=== PATIENT | male | born 1955 | race Caucasian/White ===

== ENCOUNTER 2019-01-15 | Inpatient (IN) ==
[2019-01-15] MEDS ORDERED: METOCLOPRAMIDE 10 MG/2 ML VIAL IV ONE (00:13)
[2019-01-15] MEDS ORDERED: 0.9 % SODIUM CHLORIDE 2,000 ML IV ONE (00:13)
[2019-01-15] MEDS ORDERED: ACETAMINOPHEN 325 MG TABLET PO ONE (00:13)
--- NOTE | 2019-01-15 00:16 | Emergency Department Note ---
Headache HPI - General Chief Complaint: Headache Stated Complaint: headache after drinking tonight Time Seen by Provider: 01/15/19 00:06 Source: patient Mode of arrival: EMS Limitations: no limitations - History of Present Illness HPI Narrative: 63-year-old male was brought in intoxicated after drinking 1/5 of whiskey or more. Complaining of headache-it is not clear whether he had a headache before or after starting alcohol drinking , as his story changed. Not entirely cooperative for interview and exam but will answer simple questions. He called EMS. Denies fever shortness of breath. Notes chronic diarrhea - Related Data Home Medications Medication Instructions Recorded Confirmed pantoprazole 1 tab PO QDAY 04/26/16 07/26/17 ascorbic acid (vitamin C) 1 tab PO DAILY 05/25/17 07/26/17 Lisinopril [Zestril] 10 mg PO DAILY 01/15/19 01/15/19 Omeprazole [PriLOSEC] 20 mg PO DAILY 01/15/19 01/15/19 Previous Rx's Medication Instructions Recorded tamsulosin 0.4 mg capsule 0.4 mg PO QDAY #30 cap 06/21/17 oxyCODONE/APAP [Percocet 10-325Mg] 1 tab PO Q4HP PRN #60 tab 06/29/17 Allergies Allergy/AdvReac Type Severity Reaction Status Date / Time No Known Drug Intolerances Allergy Unknown Unknown Verified 09/19/18 11:52 Review of Systems Limitations: ROS unobtainable due to patients medical condition Headache PMH - Past Medical History Attestation: Yes: The following information was validated with the patient. [facility] Narrative: Family History (This Medical Record has been edited. Action required.) Mother Dementia Father Acute myocardial infarction Medical History (This Medical Record has been edited. Action required.) Suicidal ideation (Acute) Acute alcohol intoxication (Acute) Peptic ulcer disease (Chronic) Abdominal pain (Chronic) Chronic cholecystitis without calculus (Chronic) Nausea (Chronic) Abdominal swelling (Chronic) Abdominal pain (Chronic) External hemorrhoid, bleeding (Acute) Atypical chest pain (Acute) Pneumonia (Acute) Rheumatoid arthritis flare (Acute) Wrist arthritis (Acute) Acute peritonitis (Acute) Gastritis (Acute) Small bowel obstruction (Chronic) Gastroenteritis (Acute) Emesis, persistent (Acute) Diarrhea (Chronic) Chronic RLQ pain (Chronic) Tobacco dependence (Chronic) Alcohol abuse (Acute) Dehydration (Acute) Dehydration (Acute) Vomiting (Acute) Urinary frequency (Chronic) Transient cerebral ischemia (Chronic) Shortness of breath (Chronic) Rheumatoid arthritis (Chronic) Psoriatic arthritis (Chronic) Constipation (Chronic) H/O adenomatous polyp of colon (Chronic) Dysphasia (Chronic) Bleeding ulcer (Chronic) Weak urinary stream (Chronic) Hyperlipidemia (Chronic) Gastric ulcer (Chronic) Duodenal ulcer with hemorrhage (Chronic) Benign essential hypertension (Chronic) Tobacco abuse (Chronic) Stroke (Chronic) Seizures (Chronic) Muscle ache (Chronic) Hypertension, essential (Chronic) Gout (Chronic) Depressive disorder (Chronic) Arthritis (Chronic) Alcohol abuse (Chronic) Acid reflux (Chronic) Gastrointestinal bleeding, upper (Acute) Internal bleeding (Acute) History of chest x-ray (Chronic 09/28/15) Perforated chronic duodenal ulcer (Resolved) Past Surgical History (This Medical Record has been edited. Action required.) History of repair of rotator cuff (Chronic) History of knee replacement procedure of left knee (Chronic) History of colonoscopy (Chronic) History of esophagogastroduodenoscopy (EGD) (Acute 02/29/16) History of colonoscopy (Chronic 02/19/15) History of esophagogastroduodenoscopy (EGD) (Chronic 12/08/15) History of inguinal hernia repair (Chronic 09/30/15) Medical history: Reports: GERD, GI bleed, hyperlipidemia, arthritis, hypertension, seizures, other, CVA, TIA, COPD Psychiatric history: Reports: depression - Social History smoking status: Current every day smoker Alcohol use: Reports: Heavy, Recent Drug use: Reports: none Physical Exam No acute distress. Somnolent but easily arousable. Normocephalic atraumatic. I did try to palpate his forehead area which he said did reproduce some tenderness. Conjunctive of bilaterally injected but he is having some yellowish drainage from the left eye. No nasal discharge or congestion. Wearing nasal cannula oxygen which she says is chronic. Oropharynx is pink moist. Neck is supple without lymphadenopathy or thyromegaly. Heart is regular rate and rhythm no murmur appreciated. Lungs are clear to auscultation bilaterally without wheezes rales rhonchi or respiratory distress. Abdomen is soft nontender nondistended. No pedal edema. Will answer simple questions only-irritable and only partially cooperative Limitations: no limitations Course Vital Signs Temperature 97.8 F 01/15/19 00:02 Pulse Rate 75 01/15/19 00:02 Respiratory Rate 17 01/15/19 00:02 Blood Pressure 151/98 01/15/19 00:02 Pulse Oximetry (%) 95 01/15/19 00:02 Temperature 97.8 F 01/15/19 00:02 Pulse Rate 73 01/15/19 02:58 Respiratory Rate 17 01/15/19 00:02 Blood Pressure 151/98 01/15/19 00:02 Pulse Oximetry (%) 98 01/15/19 02:58 Headache - Lab Data Lab results reviewed: Yes I reviewed the patient's lab results. Result diagrams: 01/15/19 00:22 01/15/19 00:22 Lab Results 01/15/19 01/15/19 01/15/19 Range/Units 00:22 00:22 00:22 WBC 6.9 (4.5-11.0) K/mcL RBC 4.48 L (4.50-5.90) M/mcL Hgb 10.9 L (13.5-16.5) g/dL Hct 34.8 L (41.0-55.0) % MCV 77.6 L (80.0-100.0) fL MCH 24.4 L (26.0-34.0) pg MCHC 31.4 (31.0-36.0) g/dL RDW 21.0 H (11.5-14.5) % Plt Count 289 (140-440) K/mcL MPV 9.4 (7.4-10.4) fL Gran % 61.4 (38.0-78.0) % Lymph % (Auto) 25.1 (15.5-49.0) % [place] % (Auto) 10.1 (1.0-12.0) % Eos % (Auto) 2.7 (0.0-7.0) % Baso % (Auto) 0.7 (0.0-2.0) % Gran # 4.2 (1.8-8.0) K/mcL Lymph # (Auto) 1.7 (1.5-4.8) K/mcL [place] # (Auto) 0.7 (0.1-0.9) K/mcL Eos # (Auto) 0.2 (0.0-0.7) K/mcL Baso # (Auto) 0 (0.0-0.3) K/mcL Sodium 144 (133-145) mmol/L Potassium 2.6 L* (3.3-5.1) mmol/L Chloride 103 (96-108) mmol/L Carbon Dioxide 24 (22-30) mmol/L Anion Gap 17.0 H (8-16) BUN 7 L (8-23) mg/dl Creatinine 0.6 L (0.7-1.2) mg/dl GFR Calculation 108 Glucose 72 (70-105) mg/dL Calcium 8.0 L (8.6-10.4) mg/dl Magnesium (1.6-2.5) mg/dL Total Bilirubin 0.3 (0.0-1.0) mg/dL AST 23 (0-37) U/l ALT 12 (0-40) U/l Alkaline Phosphatase 79 (39-117) U/L Total Protein 6.4 (5.9-8.4) gm/dL Albumin 3.2 (3.2-5.2) gm/dL Globulin 3.2 (2.2-3.7) gm/dL Albumin/Globulin Ratio 1.0 (1.0-2.3) Ethyl Alcohol 0.205 H (<0.010) gm/dl 01/15/19 Range/Units 00:22 WBC (4.5-11.0) K/mcL RBC (4.50-5.90) M/mcL Hgb (13.5-16.5) g/dL Hct (41.0-55.0) % MCV (80.0-100.0) fL MCH (26.0-34.0) pg MCHC (31.0-36.0) g/dL RDW (11.5-14.5) % Plt Count (140-440) K/mcL MPV (7.4-10.4) fL Gran % (38.0-78.0) % Lymph % (Auto) (15.5-49.0) % [place] % (Auto) (1.0-12.0) % Eos % (Auto) (0.0-7.0) % Baso % (Auto) (0.0-2.0) % Gran # (1.8-8.0) K/mcL Lymph # (Auto) (1.5-4.8) K/mcL [place] # (Auto) (0.1-0.9) K/mcL Eos # (Auto) (0.0-0.7) K/mcL Baso # (Auto) (0.0-0.3) K/mcL Sodium (133-145) mmol/L Potassium (3.3-5.1) mmol/L Chloride (96-108) mmol/L Carbon Dioxide (22-30) mmol/L Anion Gap (8-16) BUN (8-23) mg/dl Creatinine (0.7-1.2) mg/dl GFR Calculation Glucose (70-105) mg/dL Calcium (8.6-10.4) mg/dl Magnesium 0.8 L* (1.6-2.5) mg/dL Total Bilirubin (0.0-1.0) mg/dL AST (0-37) U/l ALT (0-40) U/l Alkaline Phosphatase (39-117) U/L Total Protein (5.9-8.4) gm/dL Albumin (3.2-5.2) gm/dL Globulin (2.2-3.7) gm/dL Albumin/Globulin Ratio (1.0-2.3) Ethyl Alcohol (<0.010) gm/dl Disposition Pt seen by [facility]/PA only: No Clinical Impression: Hypokalemia, Hypomagnesemia Acute alcohol intoxication Qualifiers: Complication of substance-induced condition: with unspecified complication Qualified Code(s): F10.929 - Alcohol use, unspecified with intoxication, uns pecified Summary: Ordered laboratory, IV fluids Tylenol and Reglan. On further questioning it does sound like his typical treatment for headaches involves alcohol-but is not clear whether he drank alcohol because he had a headache or if he developed a headache after drinking alcohol. Found to have severe hypokalemia. Start K rider Magnesium is also very low and so mag rider started as well Patient will need to come in the hospital for repletion of electrolytes. Incidentally noted iron deficiency anemia which is chronic Discussed with Dr. Demarco, hospitalist, he agreed to admit patient for further care and evaluation. I will write holding orders Disposition: Xfer As Inpt ([facility]) Condition: Fair Referrals: No,PCP [Primary Care Provider] -
[2019-01-15 01:34] LABS: Basophils # (Auto) 0 K/mcL (0.0-0.3); Basophils % (Auto) 0.7 % (0.0-2.0); Eosinophils # (Auto) 0.2 K/mcL (0.0-0.7); Eosinophils % (Auto) 2.7 % (0.0-7.0); Granulocytes % (Auto) 61.4 % (38.0-78.0); Hematocrit 34.8 % (41.0-55.0); Hemoglobin 10.9 g/dL (13.5-16.5); Lymphocytes # (Auto) 1.7 K/mcL (1.5-4.8); Lymphocytes % (Auto) 25.1 % (15.5-49.0); Mean Cell Volume 77.6 fL (80.0-100.0); Mean Corpuscular HGB Conc 31.4 g/dL (31.0-36.0); Mean Platelet Volume 9.4 fL (7.4-10.4); Monocytes # (Auto) 0.7 K/mcL (0.1-0.9); Monocytes % (Auto) 10.1 % (1.0-12.0); Platelet Count 289 K/mcL (140-440); RBC 4.48 M/mcL (4.50-5.90); WBC 6.9 K/mcL (4.5-11.0)
[2019-01-15 01:44] LABS: Alcohol,Blood 0.205 gm/dl (<0.010)
[2019-01-15 02:01] LABS: ALT/SGPT 12 U/l (0-40); AST/SGOT 23 U/l (0-37); Albumin 3.2 gm/dL (3.2-5.2); Alkaline Phosphatase 79 U/L (39-117); Bilirubin,Total 0.3 mg/dL (0.0-1.0); Blood Urea Nitrogen 7 mg/dl (8-23); Carbon Dioxide 24 mmol/L (22-30); Chloride 103 mmol/L (96-108); Globulin 3.2 gm/dL (2.2-3.7); Glomerular Filtration Rate 108; Glucose 72 mg/dL (70-105)
[2019-01-15] MEDS ORDERED: POTASSIUM CHLORIDE 40 MEQ in DEXTROSE 5% IN WATER 500 ML IV ONE ×2 (02:02→10:04)
[2019-01-15] MEDS ORDERED: POTASSIUM CHLORIDE 20 MEQ/10 ML VIAL IV ONE (02:35)
[2019-01-15] MEDS ORDERED: MAGNESIUM SULFATE 24.36 MEQ in DEXTROSE 5% IN WATER 50 ML IV ONE (02:45)
[2019-01-15] MEDS ORDERED: ONDANSETRON 4 MG/2 ML VIAL IV PRN ×2 (03:14→09:48)
[2019-01-15] MEDS ORDERED: NALOXONE HCL 0.4 MG/ML VIAL IV PRN (03:14)
[2019-01-15] MEDS ORDERED: LORazepam 2 MG/ML VIAL IV PRN (03:17)
[2019-01-15] MEDS: LACTATED RINGERS 1,000 ML IV SCH ×3 (05:15→19:20)
--- NOTE | 2019-01-15 08:20 | Internal Med History&Physical ---
Medical - H&P: HPI Patient information: Note initiated : 01/15/19 at 8:14 am Service Date, if different from initiated Date: [] Patient: Nenita Ortiz a 63 y/o M admitted on 01/15/19 for headache after drinking tonight. Chief Complaint: [] History of present illness: Mr. Ortiz is a 63 year old M Patient called EMS because of headache. Headaches improved in the ED with fluids and Tylenol. Patient has headaches multiple times a week has had this for years. Could not tell me any particular triggers. Describes a headache is frontal sharp occasional sharp. It was severe enough this time that he called EMS to bring the hospital. As mentioned above but improved with fluids and Tylenol in the ED. He occasionally takes Tylenol at home for which helps some but otherwise takes no other medications and has not seen a doctor for this. Patient was found to have severe hypomagnesemia 0.08 as well as hypokalemia 6. Mid for observation and left leg replacement. Is intoxicated as well. He also complains of diarrhea which is had for years. Has never had this checked out. stated he had a colonoscopy by Dr. wilcox about a year ago. Denies any chest pain cough shortness of breath. Review of Systems: Pertinent positives as above. Denies fever/chills/nausea/vomiting/chest or abdominal pain/cough/dyspnea. Remaining 10 point review of system reviewed negative Medical - H&P: PMH Medical history: Medical History (This Medical Record has been edited. Action required.) Suicidal ideation (Acute) Acute alcohol intoxication (Acute) Peptic ulcer disease (Chronic) Abdominal pain (Chronic) Chronic cholecystitis without calculus (Chronic) Nausea (Chronic) Abdominal swelling (Chronic) Abdominal pain (Chronic) External hemorrhoid, bleeding (Acute) Atypical chest pain (Acute) Pneumonia (Acute) Rheumatoid arthritis flare (Acute) Wrist arthritis (Acute) Acute peritonitis (Acute) Gastritis (Acute) Small bowel obstruction (Chronic) Gastroenteritis (Acute) Emesis, persistent (Acute) Diarrhea (Chronic) Chronic RLQ pain (Chronic) Tobacco dependence (Chronic) Alcohol abuse (Acute) Dehydration (Acute) Dehydration (Acute) Vomiting (Acute) Urinary frequency (Chronic) Transient cerebral ischemia (Chronic) Shortness of breath (Chronic) Rheumatoid arthritis (Chronic) Psoriatic arthritis (Chronic) Constipation (Chronic) H/O adenomatous polyp of colon (Chronic) Dysphasia (Chronic) Bleeding ulcer (Chronic) Weak urinary stream (Chronic) Hyperlipidemia (Chronic) Gastric ulcer (Chronic) Duodenal ulcer with hemorrhage (Chronic) Benign essential hypertension (Chronic) Tobacco abuse (Chronic) Stroke (Chronic) Seizures (Chronic) Muscle ache (Chronic) Hypertension, essential (Chronic) Gout (Chronic) Depressive disorder (Chronic) Arthritis (Chronic) Alcohol abuse (Chronic) Acid reflux (Chronic) Gastrointestinal bleeding, upper (Acute) Internal bleeding (Acute) History of chest x-ray (Chronic 09/28/15) Perforated chronic duodenal ulcer (Resolved) Past Surgical History (This Medical Record has been edited. Action required.) History of repair of rotator cuff (Chronic) History of knee replacement procedure of left knee (Chronic) History of colonoscopy (Chronic) History of esophagogastroduodenoscopy (EGD) (Acute 02/29/16) History of colonoscopy (Chronic 02/19/15) History of esophagogastroduodenoscopy (EGD) (Chronic 12/08/15) History of inguinal hernia repair (Chronic 09/30/15) Family History (This Medical Record has been edited. Action required.) Mother Dementia Father Acute myocardial infarction Social History (This Medical Record has been edited. Action required. Smokes 1/2 packs of cigarettes per day Drinks 1/5 of liquor at minimum every day Denies drug use Lives by himself Medical - H&P: Meds Home Medications Medication Instructions Recorded Confirmed Type pantoprazole 1 tab PO QDAY 04/26/16 07/26/17 History ascorbic acid (vitamin C) 1 tab PO DAILY 05/25/17 07/26/17 History tamsulosin 0.4 mg capsule 0.4 mg PO QDAY #30 cap 06/21/17 07/26/17 Rx oxyCODONE/APAP [Percocet 10-325Mg] 1 tab PO Q4HP PRN #60 tab 06/29/17 07/26/17 Rx Lisinopril [Zestril] 10 mg PO DAILY 01/15/19 01/15/19 History Omeprazole [PriLOSEC] 20 mg PO DAILY 01/15/19 01/15/19 History Allergies Allergy/AdvReac Type Severity Reaction Status Date / Time No Known Drug Intolerances Allergy Unknown Unknown Verified 09/19/18 11:52 Medical - H&P: Exam - Constitutional Vitals: Temp Pulse Resp BP Pulse Ox 97.7 F 67 18 148/109 91 01/15/19 07:01 01/15/19 08:10 01/15/19 08:02 01/15/19 08:02 01/15/19 08:10 Exam: General: Alert, Awake, No acute Distress Eyes/N/T: EOMI, PEERL, DMM Head/Neck: neck supple, normocephalic atraumatic CV: RRR, No murmurs, normal s1/s2 Pulm: Clear b/l, no wheezing/rhonchi/rales Abd: soft, nontender, +BS x4 Ext: no clubbing/cyanosis/edema Neuro: Alert, no focal deficits, moves all extremities, CN 2-12 grossly intact, symmetrical strength b/l upper/lower, sensations intact b/l upper/lower Skin: warm/dry Medical - H&P: Reslt - Labs CBC & Chem 7: 01/15/19 00:22 01/15/19 08:33 Labs: Short CBC 01/15/19 Range/Units 00:22 WBC 6.9 (4.5-11.0) K/mcL Hgb 10.9 L (13.5-16.5) g/dL Hct 34.8 L (41.0-55.0) % Plt Count 289 (140-440) K/mcL BMP 01/15/19 00:22 Sodium 144 Potassium 2.6 L* Chloride 103 Carbon Dioxide 24 BUN 7 L Creatinine 0.6 L Glucose 72 Calcium 8.0 L Liver Function 01/15/19 Range/Units 00:22 Total Bilirubin 0.3 (0.0-1.0) mg/dL AST 23 (0-37) U/l ALT 12 (0-40) U/l Alkaline Phosphatase 79 (39-117) U/L Albumin 3.2 (3.2-5.2) gm/dL Medical - H&P: A/P - Narrative A/P Narrative: A: *Severe hypomagnesemia: *Hypokalemia: *Alcohol intoxication: *Alcohol abuse with possible seizures *Chronic JOSEPH's: described as frontal and can not point out triggers. has not seen a physician for this *Diarrhea: Has not seen a physician for this *HTN: *[facility] anemia, chronic: *GERD/PUD: *Tobacco abuse: *COPD P: -replete mg/tex and f/u labs -beer for lunch/dinner -cont anderson lisinopril -vitamin/thiamine/folate -[facility] protocol -stool studies -anemia w/u -f/u with GI for chr diarrhea and Neurology for chr JOSEPH's -alcohol smoking cessation counseling -ppx: lovenox/home ppi
[2019-01-15] MEDS: ACETAMINOPHEN 325 MG TABLET PO PRN ×2 (08:48→21:36)
[2019-01-15] MEDS: FOLIC ACID 1 MG TABLET PO SCH (08:48)
[2019-01-15] MEDS: THIAMINE 100 MG in 0.9 % SODIUM CHLORIDE 50 ML IV SCH (08:59)
[2019-01-15] MEDS ORDERED: MULTIVITAMINS,THERAPEUTIC 1 ML ORAL.SOL PO SCH (09:00)
[2019-01-15] MEDS: MUPIROCIN OINT 2% 22GM NARES SCH ×2 (09:01→21:23)
[2019-01-15] MEDS: MULTIVIT,THER IRON,CA,FA & MIN 1 TABLET PO SCH (09:33)
[2019-01-15 09:36] LABS: ALT/SGPT 13 U/l (0-40); AST/SGOT 25 U/l (0-37); Albumin/Globulin Ratio 0.9 (1.0-2.3); Alkaline Phosphatase 81 U/L (39-117); Bilirubin,Direct < 0.2 mg/dL (0.0-0.3); Bilirubin,Total 0.3 mg/dL (0.0-1.0); Blood Urea Nitrogen 6 mg/dl (8-23); Calcium 8.1 mg/dl (8.6-10.4); Carbon Dioxide 25 mmol/L (22-30); Chloride 103 mmol/L (96-108); Globulin 3.4 gm/dL (2.2-3.7); Glomerular Filtration Rate 101; Glucose 73 mg/dL (70-105); Lactate Dehydrogenase 214 U/L (94-250); Phosphorous 2.2 mg/dL (2.7-4.5); Triglycerides 105 mg/dl (<150); Uric Acid 8.4 mg/dL (2.5-8.0)
[2019-01-15] MEDS ORDERED: POTASSIUM CHLORIDE 40 MEQ in DEXTROSE 5% IN WATER 500 ML IV PRN (09:48)
[2019-01-15] MEDS ORDERED: MAGNESIUM SULFATE 2 GM/50 ML BAG IV PRN (09:48)
[2019-01-15] MEDS ORDERED: KETOROLAC 15 MG/ML VIAL IV PRN (09:48)
[2019-01-15] MEDS ORDERED: IPRATROPIUM/ALBUTEROL 3 ML AMPUL.NEB NEB PRN (09:48)
[2019-01-15] MEDS ORDERED: POTASSIUM CHLORIDE 20 MEQ TABLET PO PRN ×2 (09:48)
[2019-01-15] MEDS ORDERED: LOPERAMIDE 2 MG CAPSULE PO PRN (09:51)
[2019-01-15] MEDS ORDERED: MAGNESIUM SULFATE 2 GM/50 ML BAG IV ONE (10:04)
[2019-01-15] MEDS: PHOSPHORUS 250 MG TABLET PO SCH ×2 (10:44→21:35)
[2019-01-15] MEDS: ENOXAPARIN 40 MG/0.4 ML SYRINGE SQ SCH (10:49)
[2019-01-15] MEDS: FAMOTIDINE 20 MG TABLET PO SCH ×2 (11:00→21:35)
[2019-01-15 11:51] LABS: Ferritin 45.1 ng/ml (30-400)
[2019-01-15] MEDS: NICOTINE 21 MG PATCH TOPICAL SCH (13:00)
[2019-01-15] MEDS: 0.9 % SODIUM CHLORIDE 10 ML SYRINGE IV SCH ×2 (13:43→21:36)
[2019-01-15] MEDS: DIAZEPAM 10 MG/2 ML SYRINGE IV PRN ×2 (21:33→22:41)
[2019-01-15] MEDS ORDERED: MELATONIN 3 MG TABLET PO PRN (22:09)
[2019-01-16] MEDS: LACTATED RINGERS 1,000 ML IV SCH ×3 (02:06→14:45)
[2019-01-16] MEDS: chlordiazePOXIDE 25 MG CAPSULE PO PRN ×3 (03:18→14:50)
[2019-01-16] MEDS: DIAZEPAM 10 MG/2 ML SYRINGE IV PRN ×2 (04:28→14:37)
[2019-01-16] MEDS: 0.9 % SODIUM CHLORIDE 10 ML SYRINGE IV SCH ×2 (05:03→14:39)
[2019-01-16 05:53] LABS: Prothrombin Time 13.5 sec (11.9-14.5)
[2019-01-16 06:06] LABS: ALT/SGPT 10 U/l (0-40); AST/SGOT 18 U/l (0-37); Albumin 2.7 gm/dL (3.2-5.2); Alkaline Phosphatase 88 U/L (39-117); Amylase 47 U/L (28-100); Bilirubin,Direct < 0.2 mg/dL (0.0-0.3); Bilirubin,Total 0.2 mg/dL (0.0-1.0); Blood Urea Nitrogen 11 mg/dl (8-23); Calcium 8.3 mg/dl (8.6-10.4); Carbon Dioxide 26 mmol/L (22-30); Chloride 107 mmol/L (96-108); Globulin 2.7 gm/dL (2.2-3.7); Glomerular Filtration Rate 108; Glucose 112 mg/dL (70-105); Lactate Dehydrogenase 193 U/L (94-250); Triglycerides 60 mg/dl (<150); Uric Acid 6.7 mg/dL (2.5-8.0)
[2019-01-16] MEDS ORDERED: POTASSIUM CHLORIDE 40 MEQ in DEXTROSE 5% IN WATER 500 ML IV PRN (07:19)
[2019-01-16] MEDS ORDERED: MAGNESIUM SULFATE 2 GM/50 ML BAG IV PRN (07:19)
[2019-01-16] MEDS: ENOXAPARIN 40 MG/0.4 ML SYRINGE SQ SCH (08:02)
[2019-01-16] MEDS: FAMOTIDINE 20 MG TABLET PO SCH (08:03)
[2019-01-16] MEDS: FOLIC ACID 1 MG TABLET PO SCH (08:03)
[2019-01-16] MEDS: MULTIVIT,THER IRON,CA,FA & MIN 1 TABLET PO SCH (08:06)
--- NOTE | 2019-01-16 08:12 | Internal Med Progress Note ---
Medical - PN: Subj Patient information: Note initiated : 01/16/19 at 8:06 am Service Date, if different from initiated Date: [] Patient: Nenita Ortiz a 63 y/o M admitted on 01/15/19 for headache after drinking tonight. Chief Complaint: [] Interval history: Mr. Ortiz is a 63 year old M Patient called EMS because of headache. Headaches improved in the ED with fluids and Tylenol. Patient has headaches multiple times a week has had this for years. Could not tell me any particular triggers. Describes a headache is frontal sharp occasional sharp. It was severe enough this time that he called EMS to bring [facility]. As mentioned above but improved with fluids and Tylenol in the ED. He occasionally takes Tylenol at home for which helps some but otherwise takes no other medications and has not seen a doctor for this. Patient was found to have severe hypomagnesemia 0.08 as well as hypokalemia 6. Mid for observation and left leg replacement. Is intoxicated as well. He also complains of diarrhea which is had for years. Has never had this checked out. stated he had a colonoscopy by Dr. wilcox about a year ago. 01/16-patient admitted to ICU for management of hypokalemia/low magnesium and severe alcoholism. Potassium improved 3.4 from 2.6, magnesium up from 0.8-1.1. Continue replacement as indicated. No significant withdrawals noted. Continuing on benzodiazepine. Start oral alcohol as needed. Patient has no desire to quit alcohol at this time. Continue PT OT. Case management coordinating safe discharge plan. - Constitutional Vitals: Vital Signs Temp Pulse Resp BP Pulse Ox 98.5 F 85 20 167/95 100 01/16/19 03:31 01/15/19 20:01 01/16/19 03:31 01/16/19 03:31 01/16/19 03:31 Period Temp Pulse Resp BP Sys/[place] Pulse Ox Last 24 Hr 97.4 F-99.4 F 67-97 16-22 139-173/79-104 89-100 Intake and Output 01/15/19 01/16/19 01/16/19 21:59 05:59 13:59 Intake Total 1760 1000 Output Total 275 175 Balance 1485 825 Weight 216 lb 4.8 oz Intake & Output: Intake & Output 01/15/19 01/16/1919 21:59 05:59 13:59 Intake Total 1760 1000 Output Total 275 175 Balance 1485 825 Weight 216 lb 4.8 oz Intake: IV 1520 1000 Lactated Ringers 1,000 ml @ 150 1000 1000 mls/hr IV .Q6H40M [facility] Rx#: [id number] Potassium Chloride 40 Meq In 520 Dextrose 5% in Water 500 ml @ 130 mls/hr IV ONCE ONE Rx#: [id number] Oral 240 Output: Void Amount 275 175 Other: Urine Appearance Clear Urine Color Dark Yellow Bright Yellow General appearance: no acute distress Exam: Alert oriented Nonlabored breathing No anxiety No telemetry events Medical - PN: Obj Da - Labs CBC & Chem 7: 01/15/19 00:22 01/16/19 03:50 Labs: Abnormal Lab Results 01/16/19 01/15/19 01/15/19 03:50 10:11 08:33 RBC Hgb Hct MCV MCH RDW Potassium 3.1 L Anion Gap BUN 6 L Creatinine 0.6 L Glucose 112 H Uric Acid 8.4 H Calcium 8.3 L 8.1 L Phosphorus 2.2 L Magnesium 1.1 L 1.2 L Iron 23 L Transferrin % Sat 9 L Total Protein 5.4 L Albumin 2.7 L 3.0 L Albumin/Globulin Ratio 0.9 L Ethyl Alcohol 01/15/19 01/15/19 01/15/19 00:22 00:22 00:22 RBC Hgb Hct MCV MCH RDW Potassium 2.6 L* Anion Gap 17.0 H BUN 7 L Creatinine 0.6 L Glucose Uric Acid Calcium 8.0 L Phosphorus Magnesium 0.8 L* Iron Transferrin % Sat Total Protein Albumin Albumin/Globulin Ratio Ethyl Alcohol 0.205 H 01/15/19 00:22 RBC 4.48 L Hgb 10.9 L Hct 34.8 L MCV 77.6 L MCH 24.4 L RDW 21.0 H Potassium Anion Gap BUN Creatinine Glucose Uric Acid Calcium Phosphorus Magnesium Iron Transferrin % Sat Total Protein Albumin Albumin/Globulin Ratio Ethyl Alcohol Meds: Medications Acetaminophen (Tylenol) 650 mg PO Q6HP PRN PRN Reason: PAIN/FEVER > 101 Last Admin: 01/15/19 21:36 Dose: 650 mg Documented by: Albuterol/Ipratropium (Duoneb) 3 ml NEB Q4HP PRN PRN Reason: Shortness Of Breath Chlordiazepoxide HCl (Librium) 25 mg PO Q4HP PRN PRN Reason: Alcohol Withdrawal Last Admin: 01/16/19 08:02 Dose: 25 mg Documented by: Diazepam (Valium) 5 - 20 mg IV PRN PRN; Protocol PRN Reason: CIWA, Alcohol Withdrawal Last Admin: 01/16/19 04:28 Dose: 5 mg Documented by: Enoxaparin Sodium (Lovenox) 40 mg SQ DAILY [facility] Last Admin: 01/16/19 08:02 Dose: 40 mg Documented by: Famotidine (Pepcid) 20 mg PO BID [facility] Last Admin: 01/16/19 08:03 Dose: 20 mg Documented by: Folic Acid (Folic Acid) 1 mg PO DAILY [facility] Last Admin: 01/16/19 08:03 Dose: 1 mg Documented by: Lactated Ringer's (Lactated Ringers) 1,000 mls @ 150 mls/hr IV .Q6H40M [facility] Last Admin: 01/16/19 02:06 Dose: 150 mls/hr Documented by: Thiamine HCl 100 mg/ Sodium (Chloride) 51 mls @ 50 mls/hr IV DAILY [facility] Stop: 01/17/19 10:02 Last Infusion: 01/15/19 10:05 Dose: Infused Documented by: Magnesium Sulfate (Magnesium Sulfate) 2 gm in 50 mls @ 50 mls/hr IV UD PRN PRN Reason: Mag < or = 1.7 Potassium Chloride 40 meq/ (Dextrose) 520 mls @ 130 mls/hr IV UD PRN PRN Reason: K+ = or < 3.5 Iron Carb/Multivit/Ceramic Tile Setter/Folic Acid (Multivitamin W/Minerals) 1 tab PO DAILY [facility] Last Admin: 01/15/19 09:33 Dose: 1 tab Documented by: Ketorolac Tromethamine (Toradol) 15 mg IV Q4-6HP PRN PRN Reason: Per Pain Protocol Stop: 01/17/19 09:50 Last Admin: 01/16/19 04:26 Dose: 15 mg Documented by: Lisinopril (Zestril) 10 mg PO DAILY [facility] Last Admin: 01/16/19 08:03 Dose: 10 mg Documented by: Loperamide HCl (Imodium) 2 mg PO PRN PRN PRN Reason: Diarrhea Last Admin: 01/15/19 10:46 Dose: 2 mg Documented by: Melatonin (Melatonin 3mg Tablet) 3 mg PO HSP PRN PRN Reason: Insomnia Last Admin: 01/15/19 22:30 Dose: 3 mg Documented by: Naloxone HCl (Narcan) 0.1 mg IV Q2MIN PRN PRN Reason: Opiate Reversal Nicotine (Nicoderm) 21 mg TOPICAL DAILY@1000 [facility] Last Admin: 01/15/19 13:00 Dose: 21 mg Documented by: Ondansetron HCl (Zofran) 4 mg IV Q4HP PRN PRN Reason: Nausea And Vomiting Ondansetron HCl (Zofran) 4 mg IV Q4HP PRN PRN Reason: Nausea And Vomiting Potassium Chloride (Kdur) 40 meq PO UD PRN PRN Reason: Potssium is 3-3.5 Last Admin: 01/15/19 10:45 Dose: 40 meq Documented by: Potassium Chloride (Kdur) 40 meq PO UD PRN PRN Reason: Potassium < 3 Sodium Chloride (Saline Flush) 10 ml IV Q8 [facility] Last Admin: 01/16/19 05:03 Dose: 10 ml Documented by: Medical - PN: A/P - Time Spent With Patient Total time spent is greater than 50% in coordination of care (as documented) at patient's floor/unit and/or counseling patient: 25 - 35 minutes - Narrative A/P Narrative: A: * Multiple electrolyte abnormality including hypokalemia/low magnesium and low phosphorus currently on aggressive replacement. * Severe alcohol use disorder-initial intoxication now started on oral alcohol to avoid withdrawal/DTs. Patient has no desire to quit alcohol * Alcohol abuse with possible seizures. No episodes of DT/seizures noted. Currently on benzodiazepine/oral alcohol * Chronic JOSEPH's: Stable and controlled on Tylenol * Diarrhea: Chronic * Microcytic anemia start iron infusion. Low serum iron, ferritin 45. * HTN: Continue home dose JEN inhibitor * GERD continue home dose omeprazole * BPH continue home dose tamsulosin * Tobacco abuse * COPD continue bronchodilators/2 L oxygen * Full code * Prophylaxis Lovenox Plan * PT OT * Electrolyte replacement as indicated * Oral alcohol * Podiatry consult for nutrition supplements * IV iron infusion * Schedule outpatient follow-up with GI for chronic diarrhea and neurology for chronic headaches Medical - PN: Qual - Stroke Symptom Onset Unknown: No - VTE Deep Vein Thrombosis/Pulmonary Embolism Present on Admission: No
[2019-01-16] MEDS ORDERED: LISINOPRIL 10 MG TABLET PO SCH (09:00)
[2019-01-16] MEDS ORDERED: IRON SUCROSE COMPLEX 400 MG in 0.9 % SODIUM CHLORIDE 250 ML IV ONE (09:00)
[2019-01-16] MEDS: THIAMINE 100 MG in 0.9 % SODIUM CHLORIDE 50 ML IV SCH (12:00)
[2019-01-16] MEDS: NICOTINE 21 MG PATCH TOPICAL SCH (12:00)
== END 2019-01-16 16:20 | disposition left against medical advice (07) | DRG 641 ==
LOC: ICU → ED → ICU 04:13
PROVIDERS: ADMIT Internal Medicine; ATTEND Internal Medicine